=== PATIENT | male | born 1980 | race American Indian/Alaskan Native ===

== ENCOUNTER 2018-12-23 07:14 | Emergency (ER) | payer OTHER, MEDICAID ==
[2018-12-23 07:22] VITALS: BP 136/72; PULSE 65; RESP 18; TEMP 97.4; O2SAT 99
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
== END 2018-12-23 09:37 | disposition left against medical advice (07) ==
LOC: C.ER 07:14
DX: Z76.5 Malingerer [conscious simulation] (principal)